=== PATIENT | male | born 1995 | race Two or more races ===

== ENCOUNTER 2021-08-22 23:57 | Inpatient (IN) | payer OTHER ==
[~2021-08-22] VITALS: Ht 188 cm; Wt 86.2 kg
[2021-08-23 03:43] LABS: Basophils # (auto) 0 10 ^3/uL (0-0.2); Basophils % (auto) 0.3 % (0.0-2.0); Eosinophils # (auto) 0 10 ^3/uL (0-0.8); Eosinophils % (auto) 0.2 % (0.0-7.0); Hematocrit 40.1 % (41.0-53.0); Hemoglobin 13.7 g/dL (13.5-17.5); Lymphocytes # (auto) 1.3 10 ^3/uL (0.4-5.4); Lymphocytes % (auto) 18.1 % (10.0-50.0); Mean Corpuscular Hgb Conc. 34.1 g/dL (32.0-36.0); Mean Corpuscular Volume 88.1 fL (80.0-100.0); Monocytes # (auto) 0.7 10 ^3/uL (0-1.3); Monocytes % (auto) 9.1 % (0.0-12.0); Neutrophils # (auto) 5.3 10 ^3/uL (1.6-8.6); Neutrophils % (auto) 72.3 % (37.0-80.0); Nucleated Red Blood Cells % 0.1 %; Red Blood Cells 4.55 10^6/uL (4.5-5.90); Red Cell Distribution Width 12.9 % (11.8-14.3); White Blood Cell 7.3 10^3/uL (4.4-10.8)
[2021-08-23] MEDS ORDERED: LORazepam 2MG/ML-1ML VIAL ONE (03:50)
[2021-08-23 03:59] LABS: Albumin 3.7 g/dL (3.4-5.0); Anion Gap 4 (5-15); Blood Alcohol < 3.0 mg/dL (0-5); Blood Urea Nitrogen 9 mg/dL (7-18); Calcium 8.3 mg/dL (8.5-10.1); Carbon Dioxide 26 mmol/L (21-32); Chloride 110 mmol/L (98-107); GFR African American 116 mL/min; GFR Non-African American 96 mL/min; Glucose 90 mg/dL (74-106); Potassium 4.3 mmol/L (3.5-5.1); Sodium 140 mmol/L (136-145)
[2021-08-23 04:02] LABS: Alanine Aminotransferase 27 U/L (16-61); Alkaline Phosphatase 76 U/L (45-117); Aspartate Aminotransferase 22 U/L (15-37); Bilirubin, Total 0.3 mg/dL (0.2-1.0)
[2021-08-23] MEDS: LORazepam 2MG/ML-1ML VIAL IV ONE ×2 (07:30→07:58)
[2021-08-23] MEDS: D5W/SOD CHL 0.45% 1,000 ML IV SCH ×2 (09:00→15:40)
[2021-08-23] MEDS ORDERED: MORPHINE SULFATE INJECTION 2 MG/ML SYRG IV PRN (09:00)
[2021-08-23] MEDS ORDERED: PHENYTOIN IV DILANTIN 1,000 MG in SODIUM CHL 0.9% 250 ML IV ONE (09:00)
[2021-08-23] MEDS ORDERED: NITROGLYCERIN 0.4 MG SL TAB SL PRN (09:00)
[2021-08-23] MEDS ORDERED: LORazepam 2MG/ML-1ML VIAL IV PRN (09:00)
[2021-08-23] MEDS: carBAMazepine 200 MG TAB PO SCH (22:14)
[2021-08-24] VITALS: BP 115/65
[2021-08-24] MEDS: D5W/SOD CHL 0.45% 1,000 ML IV SCH (02:06)
[2021-08-24 06:16] VITALS: BP 127/78
[2021-08-24 08:59] VITALS: BP 113/64
[2021-08-24] MEDS: carBAMazepine 200 MG TAB PO SCH (09:17)
[2021-08-24] MEDS ORDERED: ENOXAPARIN SOD 40 MG/0.4 ML SYRINGE SC SCH (10:00)
[2021-08-24] MEDS ORDERED: PHENYTOIN IV DILANTIN 300 MG in SODIUM CHL 0.9% 50 ML IV SCH (10:00)
[2021-08-24 12:45] VITALS: BP 118/71
[2021-08-24] MEDS ORDERED: CARB200T4 PO (12:47)
== END 2021-08-24 19:00 | DRG 101 ==
LOC: ER 08-23 00:03 → EEVIPCON 08-23 00:03 → OVERFLOW 08-23 08:56 → WEST WING 08-23 23:15
PROVIDERS: ADMIT Internal Medicine; ATTEND Internal Medicine
DX: G40.909 Epilepsy, unspecified, not intractable, without status epilepticus (principal); Z20.822 Contact with and (suspected) exposure to COVID-19
CPT/HCPCS: 36415; 70551; 80053; 80320; 85025; 87426; 96365; 96375; G0378